=== PATIENT | female | born 1945 | race Asian ===

== ENCOUNTER → 2017-12-31 | Outpatient (CLI) | payer OTHER ==
[2017-12-31 09:43] LABS: HEMATOCRIT 42.6 % (37-47); HEMOGLOBIN 14.6 g/dL (12.0-16.0); MEAN CELL VOLUME 94.2 fL (80-100); MEAN CORPUSCULAR HEMOGLOBIN 32.3 pg (25-34); MEAN CORPUSCULAR HGB CONC 34.3 g/dl (32-36); MEAN PLATELET VOLUME 9.9 fL (7.4-10.4); PLATELET COUNT 195 K/uL (130-400); RED CELL DISTRIBUTION WIDTH CV 12.2 % (11.5-14.5); RED CELL DISTRIBUTION WIDTH SD 41.8 fL (36.4-46.3); WHITE BLOOD COUNT 5.16 K/uL (4.8-10.8)
[2017-12-31 10:02] LABS: ALBUMIN 3.7 gm/dl (3.4-5.0); ALKALINE PHOSPHATASE 69 U/L (45-117); ALT/SGPT 25 U/L (12-78); AST/SGOT 15 U/L (15-37); BLOOD UREA NITROGEN 22 mg/dl (7-18); CALCIUM 9.1 mg/dl (8.5-10.1); CARBON DIOXIDE 25 mmol/L (21-32); CHOLESTEROL 220 mg/dl (0-200); CREATININE 0.72 mg/dl (0.60-1.20); GLUCOSE 118 mg/dl (70-99); LDL CHOLESTEROL CALCULATED 142 mg/dl; POTASSIUM 4.1 mmol/L (3.5-5.1); SODIUM 137 mmol/L (136-145); TOTAL PROTEIN 7.8 gm/dl (6.4-8.2)
[2017-12-31 10:14] LABS: HEMOGLOBIN A1C 6.6 % (4.5-5.6)
[2017-12-31 10:16] LABS: CREATININE RANDOM URINE 63.9 mg/dl
== END | disposition home or self-care (01) ==
LOC: C.LAB 07:03
PROVIDERS: ATTEND Family Medicine
DX: E11.9 Type 2 diabetes mellitus without complications (principal); D64.9 Anemia, unspecified

== ENCOUNTER 2018-08-19 07:53 | Observation (INO) ==
--- NOTE | 2018-08-05 13:04 | Anesthesiology Consultation ---
Date of Service August 05, 2018 Assessment & Plan (1) Encounter for pre-operative examination: Chart Review Chart Review: Acceptable Risk for Surgery and Patient seen in Pre Admission Testing Consults Requested none Teaching & Discussion Pre-Anesthesia Teaching/Discussion Notes: Instructed NPO after midnight before surgery, except medications with 15 cc of water. Medication instructions provided according to the PAT guidelines. History Surgery Operation Date: 08/19/18 11:00 Proposed Procedures p Left Breast Lumpectomy with Needle Localization and Left [place] Lymph Node Biopsy (Injection Only) - Pavel Rogers MD, FACS Height/Weight Height: 5 ft 8 in Weight: 75.5 kg Allergies Allergy/AdvReac Type Severity Reaction Status Date / Time Sulfa (Sulfonamide Allergy Rash Verified 07/29/18 11:54 Antibiotics) Medications Home Medications Medication Instructions Recorded Confirmed Last Taken Eye Vitamin 1 dose PO QAM 07/29/18 07/29/18 Unknown atorvastatin 10 mg PO PM 07/29/18 07/29/18 Unknown metformin 500 mg PO BID 07/29/18 07/29/18 Unknown Past Medical History Medical History Breast cancer Diabetes mellitus, type 2 NIDDM Hearing deficit [place] Hyperlipidemia Past Surgical History Surgical History History of breast biopsy LT History of tooth extraction Past Anesthesia History No Hx of Anesthesia Complications and No Family Hx of Anesthesia Complications History of PONV No Motion Sickness Screening History of Motion Sickness: Yes (Boats) Social History Smoking Status: Never smoker Do You Dip or Chew Tobacco: No Hx Alcohol Use: No Hx Substance Use: No Exercise / Class Metabolic Activity II 4-5 Yardwork/Stairs/Walk up hill (Does ~1hour of activity per day. No steps in her house. Denies CP/SOB.) Review of Systems Patient denies chest pain, shortness of breath, dyspnea on exertion,reflux, cough, wheezing, palpitations. +Joint Pain (Knee) Physical Exam Vital Signs BP: 105/70 P: 74 R: 18 T: 98.0 SPO2: 96% on RA ENMT Thyromental Distance: < 3.5 Finger Breadths (3) Mallampati Class: II Neck normal visual inspection and trachea midline Respiratory normal respiratory effort Auscultation: lungs clear to auscultation bilaterally Cardiovascular Rate/Rhythm: regular rate and regular rhythm Heart Sounds: + murmur (/6) Vessels: no carotid bruit Neurologic moves all extremities Psychiatric Unable to accurately assess since using her daughter/POA as a translater Testing Electrocardiogram Date: 08/05/18 Findings: + NSR @ (68) Echocardiogram Date: 04/04/17 EF: 55-60% Other Findings: + diastolic dysfunction (Grade I) Valvular Disease: + MR (Trace) Normal biventricular systolic function. Grade 1 left ventricular diastolic dysfunction. Normal chamber dimensions. Trace aortic regurgitation. Trace mitral regurgitation. Mild tricuspid regurgitation. Normal estimated right ventricular systolic and central venous pressures. Laboratory Results 08/05/18 13:57 Hemoglobin A1c 6.6 % (4.5-5.6) H 08/05/18 13:57
--- NOTE | 2018-08-05 13:06 | PAT Medication Instructions ---
Medication Instructions Date of Service August 05, 2018 Home Medications Eye Health & Lutein 1 dose PO QAM atorvastatin 10 mg PO PM metformin 500 mg PO BID STOP taking 2 weeks before surgery Eye Health & Lutein 1 dose PO QAM DO NOT take the morning of surgery metformin 500 mg PO BID Take morning of surgery NOTHING TO EAT OR DRINK AFTER MIDNIGHT Take evening before surgery atorvastatin 10 mg PO PM metformin 500 mg PO BID Other Notes If you have any questions please call us at [phone] or [phone] or [phone] or [phone]
[2018-08-05 14:56] LABS: Basophils # (auto) 0.03 K/uL (0-0.2); Basophils % (auto) 0.5 %; Eosinophils # (auto) 0.05 K/uL (0-0.5); Eosinophils % (auto) 0.9 %; Hematocrit (blood only) 40.2 % (37-47); Hemoglobin 13.7 g/dL (12.0-16.0); Lymphocytes # (auto) 2.07 K/uL (1.2-3.4); Lymphocytes % (auto) 35.3 %; Mean Corpuscular Hgb Conc 34.1 g/dL (32-36); Mean Corpuscular Volume 94.1 fL (80-100); Mean Platelet Volume 10.4 fL (7.4-10.4); Monocytes # (auto) 0.24 K/uL (0.11-0.59); Monocytes % (auto) 4.1 %; Neutrophils # (auto) 3.48 K/uL (1.4-6.5); Neutrophils % (auto) 59.2 %; Platelet Count 193 K/uL (130-400); RDW Coefficient of Variation 12.8 % (11.5-14.5); Red Blood Count 4.27 M/uL (4.2-5.4); White Blood Count 5.87 K/uL (4.8-10.8)
[2018-08-05 15:14] LABS: Estimated Average Glucose 143 mg/dl; Hemoglobin A1C 6.6 % (4.5-5.6)
[~2018-08-19 07:53] MED LIST: CEFAZOLIN 2000MG 2,000 MG/15 ML SYR IV SCH; LR 15ML/HR IV SCH
--- NOTE | 2018-08-19 09:15 | Nuclear Medicine Report ---
Study: Lymphoscintigraphy. HISTORY: Breast carcinoma. FINDINGS: Following informed consent, periareolar sequential injections were performed for a total of 0.5 mCi technetium 99m lymphocele. There were no complications. There is no follow-up imaging. IMPRESSION: Successful left periareolar lymphoscintigraphy injection Electronically signed by: Ifeanyi Liu M.D. 08/19/2018 9:13 AM
[2018-08-19] MEDS ORDERED: MIDAZOLAM HCL 1 MG/ML 2ML VIAL ONE (10:04)
[2018-08-19] MEDS ORDERED: fentaNYL citrate 100 MCG/2 ML VIAL ONE (10:04)
[2018-08-19] MEDS ORDERED: BUPIVACAINE 0.5 % 5 MG/1 ML MPF 30ML VIAL ONE (10:45)
[2018-08-19] MEDS ORDERED: METHYLENE BLUE 0.5% 10 ML VIAL ONE (10:45)
[2018-08-19] MEDS ORDERED: ISOSULFAN BLUE 10 MG/ML VIAL 5 ML ONE (10:45)
[2018-08-19] MEDS ORDERED: ONDANSETRON INJ 2 MG/ML 2 ML VIAL ONE (11:47)
[2018-08-19] MEDS ORDERED: LIDOCAINE HCL 2% 2 ML VIAL/AMP(20MG/ML) INFIL ONE (11:47)
[2018-08-19] MEDS ORDERED: PROPOFOL IV EMULSION 10 MG/ML 20 ML VIAL IV ONE (11:47)
[2018-08-19] MEDS ORDERED: DEXAMETHASONE SOD INJ 4 MG/ML VIAL ONE (11:47)
[2018-08-19] MEDS ORDERED: ATROPINE SULFATE 0.1 MG/ML 10ML SYR IV PRN (11:52)
[2018-08-19] MEDS ORDERED: fentaNYL citrate 100 MCG/2 ML VIAL IV PRN (11:52)
[2018-08-19] MEDS ORDERED: ePHEDrine sulfate 50 MG/ML AMP IV PRN (11:52)
[2018-08-19] MEDS ORDERED: ONDANSETRON INJ 2 MG/ML 2 ML VIAL IV PRN ×2 (11:52→13:47)
[2018-08-19] MEDS ORDERED: ePHEDrine sulfate 50 MG/ML AMP ONE (11:53)
[2018-08-19] MEDS ORDERED: SODIUM CHLORIDE 0.9% INJ 10 ML VIAL ONE (11:53)
--- NOTE | 2018-08-19 12:30 | Operative Report ---
Post Operative Report Pre & Post Diagnosis Operation Date: 08/19/18 10:30 Pre-Op Diagnosis: Left Breast Cancer Post-Op Diagnosis: Left Breast Cancer Procedure Operation Date: 08/19/18 10:30 Actual Procedures p Left Breast Lumpectomy with Needle Localization and Left [place] Lymph Node Biopsy (Injection Only)(Left) - Pavel Rogers MD, FACS Surgeon Pavel Rogers MD, FACS Sole Ruffer Akanksha Marrero Estimated Blood Loss 20 Findings Consistent with Post-Op Diagnosis Specimens lt breast tissue and Lymph node Description of Procedure see dictation I attest to the content of the Intraoperative Record and any orders documented therein. Any exceptions are noted below.
[2018-08-19] MEDS ORDERED: ACETAMINOPHEN 1,000 MG/100 ML VIAL IV ONE (12:32)
--- NOTE | 2018-08-19 13:18 | Anesthesiology Progress Note ---
Date of Service August 19, 2018 Anesthesia Post Procedure Vital Signs Vital Signs: Temp Pulse Pulse Resp BP BP Pulse Ox 08/19/18 13:10 37.1 C 76 16 136/81 100 08/19/18 13:05 74 25 H 134/81 100 08/19/18 13:00 74 22 134/75 99 08/19/18 12:55 76 24 130/75 98 08/19/18 12:50 75 22 139/77 98 08/19/18 12:45 78 18 128/78 100 08/19/18 12:42 77 24 100 08/19/18 12:41 84 23 113/90 100 08/19/18 12:40 82 24 122/93 100 08/19/18 12:39 36.6 C 88 27 H 122/93 100 08/19/18 09:19 36.9 C 74 16 144/79 H 95 Notes Mental Status: alert / awake / arousable and participated in evaluation Patient Amnestic to Procedure: Yes Nausea / Vomiting: adequately controlled Pain: adequately controlled Airway Patency, RR, SpO2: stable & adequate BP & HR: stable & adequate Hydration State: stable & adequate Anesthetic Complications: no major complications apparent and Pt Satisfied with anesthetic care
[2018-08-19] MEDS ORDERED: SODIUM CHLORIDE 0.9% 1000ML 1,000 ML IV SCH (13:47)
[2018-08-19] MEDS ORDERED: MoRPHine SULFATE 2 MG/ML CARP IV PRN (13:47)
[2018-08-19] MEDS ORDERED: PROMETHAZINE HCL 12.5 MG in SODIUM CHLORIDE 0.9% 50 ML IV PRN (13:47)
[2018-08-19] MEDS ORDERED: ACETAMINOPHEN 325 MG TAB PO PRN (13:47)
[2018-08-19] MEDS ORDERED: MoRPHine SULFATE 4 MG/ML 1 ML CARP\\VIAL IV PRN (13:47)
[2018-08-19] MEDS ORDERED: HYDROCODONE/ACETAMOPHEN 5/325MG TAB PO PRN ×2 (13:47)
[2018-08-19] MEDS: CEFAZOLIN 1000MG 1,000 MG/7.5 ML SYR IV SCH (20:29)
[2018-08-19] MEDS ORDERED: ATORVASTATIN 10 MG TAB PO SCH (21:00)
--- NOTE | 2018-08-19 21:44 | Operative Report ---
DATE OF OPERATION: 08/19/2018 NAME OF OPERATION: Needle localization left lumpectomy with sentinel lymph node biopsy. PREOPERATIVE DIAGNOSIS: Left breast cancer. POSTOPERATIVE DIAGNOSIS: Same. STAFF SURGEON: Pavel Rogers MD ROTARY FILTER OPERATOR: Americo Marrero PA-C ANESTHESIA: General. DESCRIPTION OF PROCEDURE: The patient was brought in the operating room and placed on the operating table in supine position. Her left arm was extended on an arm board. She had undergone needle localization and also injection of the left breast for sentinel lymph node biopsy. My information assistant helped with prepping, draping, excision of the breast and axillary tissue, and closure of the wounds. Initially, incision was made in the left axilla using 0.5% plain Marcaine to anesthetize skin and subcutaneous tissue, carrying dissection down using Neoprobe, identifying the sentinel node which was sent for frozen section. The frozen section was negative but during the frozen section, we performed lumpectomy. The needle was lateral. Incision was made from lateral to medial just above the areola carrying dissection down around the needle to the pectoralis muscle. The tissue was marked, left breast tissue, with the needle lateral, short silk suture medial, plain suture inferior/retroareolar. At this point, additional superior tissue was taken. It was marked with a long silk suture lateral and short silk suture medial with methylene blue new margin. This tissue was taken down to the muscle. Also, additional inferior/retroareolar tissue was taken down to the muscle. It was marked with long silk suture lateral, short silk suture medial, and methylene blue new margin. Clips were placed on the muscle at the level of the tumor. The initial breast tissue was placed into the Faxitron and Dr. Saldaña examined the tissue. Clip was in the center of the tissue. After appropriate hemostasis, both incisions were closed using 2-0 plain suture for the deep tissue and then the left axillary skin reapproximated using 4-0 nylon suture and then the breast tissue skin reapproximated using subcuticular 4-0 Monocryl with Steri-Strips. Dressings applied and patient transferred to recovery room in stable condition. I attest to the content of the Intraoperative Record and any orders documented therein. Any exception s are noted below.
[2018-08-20] MEDS: CEFAZOLIN 1000MG 1,000 MG/7.5 ML SYR IV SCH (03:45)
[2018-08-20 06:17] LABS: Basophils # (auto) 0.02 K/uL (0-0.2); Basophils % (auto) 0.2 %; Eosinophils # (auto) 0.01 K/uL (0-0.5); Eosinophils % (auto) 0.1 %; Hematocrit (blood only) 37.9 % (37-47); Hemoglobin 12.9 g/dL (12.0-16.0); Immature Granulocytes # (auto) 0.02 K/uL (0.00-0.02); Immature Granulocytes % (auto) 0.2 %; Lymphocytes # (auto) 1.87 K/uL (1.2-3.4); Lymphocytes % (auto) 22.4 %; Mean Corpuscular Volume 93.8 fL (80-100); Mean Platelet Volume 9.4 fL (7.4-10.4); Monocytes % (auto) 7.2 %; Neutrophils # (auto) 5.82 K/uL (1.4-6.5); Neutrophils % (auto) 69.9 %; Platelet Count 172 K/uL (130-400); RDW Coefficient of Variation 12.8 % (11.5-14.5); RDW Standard Deviation 44.5 fL (36.4-46.3); Red Blood Count 4.04 M/uL (4.2-5.4); White Blood Count 8.34 K/uL (4.8-10.8)
[2018-08-20 06:39] LABS: Albumin Level 3.4 gm/dl (3.4-5.0); Calcium 8.2 mg/dl (8.5-10.1); Creatinine Clr Calc Pharmacy 75.4 ml/min; Est GFR (African American) 101.1; Est GFR (Non-African American) 87.2; Potassium 3.4 mmol/L (3.5-5.1)
[2018-08-20 06:41] LABS: Bilirubin,Total 2.2 mg/dl (0.2-1); Globulin 3.3 gm/dl (2.5-4.0); Phosphorus 3.3 mg/dl (2.5-4.9); Total Protein 6.7 gm/dl (6.4-8.2)
--- NOTE | 2018-08-20 06:55 | Discharge Summary ---
PRINCIPAL DIAGNOSIS: Left breast cancer. PROCEDURES: The patient underwent needle localization, left breast lumpectomy with sentinel lymph node biopsy. HISTORY OF PRESENT ILLNESS: The patient is a 73-year-old female with known left breast cancer. She was brought in for definitive surgery. HOSPITAL COURSE: The patient was taken to the operating room on 08/19/2018 after undergoing needle localization and breast injection. She had a left sentinel lymph node biopsy which was negative and left lumpectomy. She has done well overnight and is felt stable for discharge home today to be followed in the surgical clinic within 1 week.
[2018-08-20 07:27] VITALS: PULSE 71; TEMP 98.2; O2SAT 96
--- NOTE | 2018-08-20 08:11 | Anesthesiology Progress Note ---
Date of Service August 20, 2018 Anesthesia Post Procedure Vital Signs Vital Signs: Temp Pulse Pulse Resp BP BP BP 08/20/18 07:27 36.8 C 71 16 132/71 08/20/18 04:17 36.9 C 73 16 113/70 08/19/18 23:49 36.7 C 80 15 112/73 08/19/18 20:00 36.7 C 79 16 108/69 08/19/18 16:35 36.8 C 89 16 124/75 08/19/18 15:33 36.9 C 88 16 109/69 08/19/18 14:35 36.6 C 87 16 116/71 08/19/18 14:05 82 16 125/80 08/19/18 13:25 75 22 140/84 08/19/18 13:20 70 22 139/81 08/19/18 13:15 74 24 138/79 08/19/18 13:10 37.1 C 72 76 19 136/81 136/81 08/19/18 13:05 74 25 H 134/81 08/19/18 13:00 74 22 134/75 08/19/18 12:55 76 24 130/75 08/19/18 12:50 75 22 139/77 08/19/18 12:45 78 18 128/78 08/19/18 12:42 77 24 08/19/18 12:41 84 23 113/90 08/19/18 12:40 82 24 122/93 08/19/18 12:39 36.6 C 88 27 H 122/93 08/19/18 09:19 36.9 C 74 16 144/79 H Pulse Ox 08/20/18 07:27 96 08/20/18 04:17 97 08/19/18 23:49 96 08/19/18 20:00 97 08/19/18 16:35 98 08/19/18 15:33 99 08/19/18 14:35 99 08/19/18 14:05 99 08/19/18 13:25 99 08/19/18 13:20 98 08/19/18 13:15 99 08/19/18 13:10 99 08/19/18 13:05 100 08/19/18 13:00 99 08/19/18 12:55 98 08/19/18 12:50 98 08/19/18 12:45 08/19/18 12:42 08/19/18 12:41 08/19/18 12:40 08/19/18 12:39 08/19/18 09:19 95 Pain Intensity Left Breast: Pain Intensity: 1 Notes Mental Status: alert / awake / arousable and participated in evaluation Patient Amnestic to Procedure: Yes Nausea / Vomiting: adequately controlled Pain: adequately controlled Airway Patency, RR, SpO2: stable & adequate BP & HR: stable & adequate Hydration State: stable & adequate Anesthetic Complications: no major complications apparent and Pt Satisfied with anesthetic care
[2018-08-20 09:19] VITALS: BP 108/69
--- NOTE | 2018-09-04 14:24 | Mammography Report ---
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 She presents for preoperative needle and wire localization prior to excision. COMPARISON: Prior left breast imaging including left breast biopsy and post procedure mammograms date d 07/10/2018, diagnostic mammogram and ultrasound 06/26/2018, screening mammograms 06/07/2018, 12/16/2013. PATIENT CONSENT: The risks of the procedure were explained to the patient and informed consent was ob tained. A timeout was performed and the left breast was confirmed as a site for preoperative localiz ation. The patient denied allergy to lidocaine. PROCEDURE DESCRIPTION: The hypoechoic mass and associated biopsy clip in the 1:00 left breast are the intended target for preoperative localization. With the patient in the right lateral decubitus posi tion and left arm extended, repeat targeted ultrasound was performed in the 1:00 axis of the left tory ast. An irregular and ill-defined hypoechoic mass with internal echogenic biopsy clip is identified and amenable to ultrasound-guided localization. The skin of the left lateral breast was prepped and draped in the usual sterile fashion. 1% buffered Lidocaine without epinephrine was administered as l ocal anesthesia. A 5cm Bagley II needle and wire combination was inserted into the breast. Optimal p ositioning was confirmed and the wire was locked in place, leaving both the needle and wire within th e breast, as per surgeon's preference. The entire procedure including approach and needle length wer e discussed with the operating surgeon prior to surgery. The patient tolerated the procedure well an d there was no immediate complication. She was sent to the operating room in satisfactory condition. A specimen radiograph was obtained which demonstrates the localizing needle and wire, ribbon-shaped b iopsy clip adjacent to the needle and a small amount of distortion within the specimen, confirming mahan ccessful preoperative localization and subsequent surgical excision. IMPRESSION: NEEDLE LOCALIZATION Status post left breast preoperative needle and wire localization for a biopsy-proven carcinoma in th e 1:00 left breast. The imaged specimen includes the intended abnormalities. Final surgical patholo gy is pending. Shelley Saldaña M.D. ay/:08/19/2018 14:54:00 Entry: kb - 09/04/2018 14:06:32 Reception Interviewer: RT Lashay(Michael)(M), [facility]
== END 2018-08-20 09:41 | disposition home health service (06) ==
LOC: ASU 07:53 → 3W 07:53